=== PATIENT | male | born 1965 | race Caucasian/White ===

== ENCOUNTER 2023-02-23 22:35 | Inpatient (IN) | payer MEDICAID, OTHER ==
--- NOTE | 2023-02-23 23:27 | ED ---
Psych HPI - General Chief Complaint: Psychiatric Symptoms Stated Complaint: Mental Health Time Seen by Provider: 02/23/23 22:46 Source: patient, RN notes reviewed, old records reviewed Mode of arrival: EMS Limitations: no limitations - History of Present Illness Initial Comments: This is a 57-year-old male presents today for evaluation by psychiatry. Patient presents to the emergency department for mental health evaluation MD Complaint: suicidal ideation, feels depressed -: days(s) Associated Psychiatric Symptoms: depression, suicidal ideation History of same: Yes Quality: constant Improves With: none Worsens With: none Context: not taking psychiatric medications, significant life stressor Associated Symptoms: denies other symptoms Treatments Prior to Arrival: placed on mental health hold - Related Data Allergies Allergy/AdvReac Type Severity Reaction Status Date / Time No Known Allergies Allergy Verified 02/23/23 22:50 Review of Systems ROS Statement: Those systems with pertinent positive or pertinent negative responses have been documented in the HPI. ROS Other: All systems not noted in ROS Statement are negative. Past Medical History Past Medical History: Diabetes Mellitus History of Any Multi-Drug Resistant Organisms: None Reported Past Psychological History: Anxiety, Depression Smoking Status: Current every day smoker Past Alcohol Use History: None Reported Past Drug Use History: None Reported General Exam Limitations: no limitations General appearance: alert, in no apparent distress Head exam: Present: atraumatic, normocephalic, normal inspection Eye exam: Present: normal appearance, PERRL, EOMI. Absent: scleral icterus, conjunctival injection, periorbital swelling ENT exam: Present: normal exam, mucous membranes moist Neck exam: Present: normal inspection. Absent: tenderness, meningismus, lymphadenopathy Respiratory exam: Present: normal lung sounds bilaterally. Absent: respiratory distress, wheezes, rales, rhonchi, stridor Cardiovascular Exam: Present: regular rate, normal rhythm, normal heart sounds. Absent: systolic murmur, diastolic murmur, rubs, gallop, clicks GI/Abdominal exam: Present: soft, normal bowel sounds. Absent: distended, tenderness, guarding, rebound, rigid Extremities exam: Present: normal inspection, full ROM, normal capillary refill. Absent: tenderness, pedal edema, joint swelling, calf tenderness Back exam: Present: normal inspection Neurological exam: Present: alert, oriented X3, CN II-XII intact Psychiatric exam: Present: normal affect, normal mood Skin exam: Present: warm, dry, intact, normal color. Absent: rash Course - Reevaluation(s) Reevaluation #1: 02/24/23 06:13 Medical records reviewed Reevaluation #2: 02/24/23 06:13 Medical clear for psychiatric evaluation Disposition Referrals: Andrea English MD [Primary Care Provider] - 1-2 days
[2023-02-24 14:03] LABS: HCT 49.4 % (39.0-53.0); HGB 16.7 gm/dL (13.0-17.5); MCH 30.3 pg (25.0-35.0); MCHC 33.7 g/dL (31.0-37.0); MCV 89.7 fL (80.0-100.0); Mean Platelet Volume 7.8; Platelet Count 325 k/uL (150-450); RBC 5.51 m/uL (4.30-5.90); RDW 13.6 % (11.5-15.5)
[2023-02-24 14:17] LABS: ALT 28 U/L (4-49); AST 22 U/L (17-59); African American GFR (CKD) >90 (>60 ml/min/1.73 sqM); Albumin 4.2 g/dL (3.5-5.0); Alkaline Phosphatase 78 U/L (38-126); Anion Gap 14 mmol/L; Blood Urea Nitrogen 7 mg/dL (9-20); Carbon Dioxide 20 mmol/L (22-30); Chloride 103 mmol/L (98-107); Glucose 231 mg/dL (74-99); Non-African American GFR(CKD) >90 (>60 ml/min/1.73 sqM); Potassium 3.2 mmol/L (3.5-5.1); Sodium 137 mmol/L (137-145); Total Bilirubin 0.9 mg/dL (0.2-1.3); Total Protein 6.9 g/dL (6.3-8.2)
[2023-02-24] MEDS ORDERED: MAG HYDROX/AL HYDROX/SIMETH 30 ML CUP PO PRN (16:56)
[2023-02-24] MEDS ORDERED: ACETAMINOPHEN TAB 325 MG TAB PO PRN (16:56)
[2023-02-24] MEDS ORDERED: MAGNESIUM HYDROXIDE 2,400 MG/30 ML CUP PO PRN (16:56)
[2023-02-24] MEDS ORDERED: LORazepam 2 MG/ML INJ IM PRN (17:02)
[2023-02-24] MEDS ORDERED: LORazepam 1 MG TAB PO PRN (17:03)
[2023-02-24] MEDS ORDERED: HALOPERIDOL LACTATE 5 MG/ML 1 ML VIAL IM PRN (17:04)
[2023-02-24] MEDS ORDERED: haloperidoL 5 MG TAB PO PRN (17:05)
[2023-02-24 17:17] LABS: Glucose,Whole Blood 156 mg/dL (70-110)
[2023-02-24 17:47] LABS: Appearance,Urine Clear (Clear); Bacteria,Urine Rare /hpf; Bilirubin,Urine Negative (Negative); Blood,Urine Negative (Negative); Color,Urine Light Yellow; Glucose,Urine (UA) Trace (Negative); Ketones,Urine Trace (Negative); Leukocyte Esterase,Urine Negative (Negative); Mucus,Urine Rare /hpf; Nitrite,Urine Negative (Negative); Protein,Urine 1+ (Negative); RBC,Urine 1 /hpf (0-5); Specific Gravity,Urine 1.008 (1.001-1.035); Urobilinogen,Urine <2.0 mg/dL (<2.0); WBC,Urine 1 /hpf (0-5)
[2023-02-24 17:58] LABS: Amphetamine Screen,Urine Not Detected (NotDetected); Barbiturate Screen,Urine Not Detected (NotDetected); Benzodiazepines Screen,Urine Detected (NotDetected); Cocaine Screen,Urine Not Detected (NotDetected); Methadone Screen, Urine Not Detected (NotDetected); Opiate Screen,Urine Not Detected (NotDetected); Oxycodone Screen, Urine Not Detected (NotDetected); Phencyclidine Screen,Urine Not Detected (NotDetected); Tricyclic Antidepressant,Urine Not Detected (NotDetected); Urn Cannabinoid Scrn Not Detected (NotDetected)
[2023-02-24 20:06] LABS: Glucose,Whole Blood 212 mg/dL (70-110)
[2023-02-25] MEDS ORDERED: POTASSIUM CHLORIDE ER 20 MEQ TAB.ER PO STA (00:36)
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
[2023-02-25] MEDS: INSULIN ASPART (NovoLOG) 100 UNIT/ML VIAL SQ SCH ×4 (07:43→21:15)
[2023-02-25] MEDS: NICOTINE 21MG/24HR PATCH TRANSDERM SCH (07:44)
[2023-02-25 07:51] LABS: Glucose,Whole Blood 137 mg/dL (70-110)
[2023-02-25] MEDS ORDERED: ALBUTEROL HFA INHALER INHALATION PRN ×2 (08:54→09:03)
[2023-02-25] MEDS ORDERED: clonazePAM 1 MG TAB PO PRN (08:54)
[2023-02-25] MEDS ORDERED: FLUTICASONE 50MCG/SPRAY NASAL 16GM EA NOSTRIL PRN (08:54)
[2023-02-25] MEDS ORDERED: NIFEdipine XL 30 MG TAB.ER.24 PO SCH (09:30)
[2023-02-25] MEDS: NIFEdipine XL 90 MG TAB.ER.24 PO SCH (10:12)
[2023-02-25] MEDS: metFORMIN 500 MG TAB PO SCH ×2 (10:12→21:14)
[2023-02-25] MEDS: DULoxetine HCL 30 MG CAPSULE.DR PO SCH (10:12)
[2023-02-25] MEDS: lisinopriL 20 MG TAB PO SCH (10:12)
[2023-02-25] MEDS: ATORVASTATIN 40 MG TAB PO SCH (10:13)
[2023-02-25] MEDS: METOPROLOL TARTRATE 25 MG TAB PO SCH ×2 (10:13→21:13)
[2023-02-25] MEDS: PREGABALIN 100 MG CAP PO SCH ×2 (10:13→21:14)
[2023-02-25] MEDS: LORATADINE 10 MG TAB PO SCH (10:13)
[2023-02-25] MEDS: INSULIN DETEMIR (LEVEMIR) 100 UNIT/ML SYR SQ SCH (10:14)
[2023-02-25 12:47] LABS: HCT 49.8 % (39.0-53.0); HGB 16.8 gm/dL (13.0-17.5); MCH 30.3 pg (25.0-35.0); MCHC 33.8 g/dL (31.0-37.0); MCV 89.8 fL (80.0-100.0); Mean Platelet Volume 7.9; Platelet Count 362 k/uL (150-450); RBC 5.55 m/uL (4.30-5.90); RDW 13.5 % (11.5-15.5); WBC 13.4 k/uL (3.8-10.6)
[2023-02-25 12:59] LABS: Glucose,Whole Blood 134 mg/dL (70-110)
[2023-02-25 13:08] LABS: African American GFR (CKD) >90 (>60 ml/min/1.73 sqM); Anion Gap 13 mmol/L; Blood Urea Nitrogen 9 mg/dL (9-20); Calcium 9.9 mg/dL (8.4-10.2); Carbon Dioxide 21 mmol/L (22-30); Chloride 104 mmol/L (98-107); Glucose 165 mg/dL (74-99); Non-African American GFR(CKD) >90 (>60 ml/min/1.73 sqM); Potassium 4.2 mmol/L (3.5-5.1); Sodium 138 mmol/L (137-145)
[2023-02-25] MEDS: REPAGLINIDE 1 MG TAB PO SCH ×2 (13:08→17:52)
--- NOTE | 2023-02-25 14:33 | P.HP ---
Psychiatric H&P - . H&P Date: 02/25/23 History & Physical: Allergies Allergy/AdvReac Type Severity Reaction Status Date / Time No Known Allergies Allergy Verified 02/24/23 14:42 Vital Signs Temp 97.6 F 02/25/23 06:45 Pulse 99 02/25/23 10:18 Resp 16 02/25/23 06:45 BP 179/85 02/25/23 10:18 Pulse Ox 97 02/25/23 06:45 FiO2 Intake & Output 02/24/23 02/25/23 02/25/23 18:59 06:59 18:59 Weight 109.27 kg 109.27 kg Laboratory Last Values WBC 13.4 k/uL (3.8-10.6) H 02/25/23 11:50 RBC 5.55 m/uL (4.30-5.90) 02/25/23 11:50 Hgb 16.8 gm/dL (13.0-17.5) 02/25/23 11:50 Hct 49.8 % (39.0-53.0) 02/25/23 11:50 MCV 89.8 fL (80.0-100.0) 02/25/23 11:50 MCH 30.3 pg (25.0-35.0) 02/25/23 11:50 MCHC 33.8 g/dL (31.0-37.0) 02/25/23 11:50 RDW 13.5 % (11.5-15.5) 02/25/23 11:50 Plt Count 362 k/uL (150-450) 02/25/23 11:50 MPV 7.9 02/25/23 11:50 Sodium 138 mmol/L (137-145) 02/25/23 11:50 Potassium 4.2 mmol/L (3.5-5.1) 02/25/23 11:50 Chloride 104 mmol/L (98-107) 02/25/23 11:50 Carbon Dioxide 21 mmol/L (22-30) L 02/25/23 11:50 Anion Gap 13 mmol/L 02/25/23 11:50 BUN 9 mg/dL (9-20) 02/25/23 11:50 Creatinine 0.76 mg/dL (0.66-1.25) 02/25/23 11:50 Est GFR (CKD-EPI)AfAm >90 (>60 ml/min/1.73 sqM) 02/25/23 11:50 Est GFR (CKD-EPI)NonAf >90 (>60 ml/min/1.73 sqM) 02/25/23 11:50 Glucose 165 mg/dL (74-99) H 02/25/23 11:50 POC Glucose (mg/dL) 134 mg/dL (70-110) H 02/25/23 12:57 POC Glu Driver/Refuse Collector ID Makeda Grullon 02/25/23 12:57 Calcium 9.9 mg/dL (8.4-10.2) 02/25/23 11:50 Total Bilirubin 0.9 mg/dL (0.2-1.3) 02/24/23 13:49 AST 22 U/L (17-59) 02/24/23 13:49 ALT 28 U/L (4-49) 02/24/23 13:49 Alkaline Phosphatase 78 U/L (38-126) 02/24/23 13:49 Total Protein 6.9 g/dL (6.3-8.2) 02/24/23 13:49 Albumin 4.2 g/dL (3.5-5.0) 02/24/23 13:49 Urine Color Light Yellow 02/24/23 13:49 Urine Appearance Clear (Clear) 02/24/23 13:49 Urine pH 7.0 (5.0-8.0) 02/24/23 13:49 Ur Specific Hundred 1.008 (1.001-1.035) 02/24/23 13:49 Urine Protein 1+ (Negative) H 02/24/23 13:49 Urine Glucose (UA) Trace (Negative) H 02/24/23 13:49 Urine Ketones Trace (Negative) H 02/24/23 13:49 Urine Blood Negative (Negative) 02/24/23 13:49 Urine Nitrite Negative (Negative) 02/24/23 13:49 Urine Bilirubin Negative (Negative) 02/24/23 13:49 Urine Urobilinogen <2.0 mg/dL (<2.0) 02/24/23 13:49 Ur Leukocyte Esterase Negative (Negative) 02/24/23 13:49 Urine RBC 1 /hpf (0-5) 02/24/23 13:49 Urine WBC 1 /hpf (0-5) 02/24/23 13:49 Urine Bacteria Rare /hpf (None) H 02/24/23 13:49 Urine Mucus Rare /hpf (None) H 02/24/23 13:49 Urine Opiates Screen Not Detected (NotDetected) 02/24/23 13:49 Ur Oxycodone Screen Not Detected (NotDetected) 02/24/23 13:49 Urine Methadone Screen Not Detected (NotDetected) 02/24/23 13:49 Ur Propoxyphene Screen Not Detected (NotDetected) 02/24/23 13:49 Ur Barbiturates Screen Not Detected (NotDetected) 02/24/23 13:49 U Tricyclic Antidepress Not Detected (NotDetected) 02/24/23 13:49 Ur Phencyclidine Scrn Not Detected (NotDetected) 02/24/23 13:49 Ur Amphetamines Screen Not Detected (NotDetected) 02/24/23 13:49 U Methamphetamines Scrn Not Detected (NotDetected) 02/24/23 13:49 U Benzodiazepines Scrn Detected (NotDetected) H 02/24/23 13:49 Urine Cocaine Screen Not Detected (NotDetected) 02/24/23 13:49 U Marijuana (THC) Screen Not Detected (NotDetected) 02/24/23 13:49 Influenza Type A (PCR) Not Detected (Not Detectd) 02/24/23 13:49 Influenza Type B (PCR) Not Detected (Not Detectd) 02/24/23 13:49 RSV (PCR) Not Detected (Not Detectd) 02/24/23 13:49 SARS-CoV-2 (PCR) Not Detected (Not Detectd) 02/24/23 13:49 02/25/23 14:19 IDENTIFYING DATA: Patient is a 57 yo male, currently lives alone in an apartment, collects [employer] HPI: Patient presented to the hospital on saturday and apparently was endorsing depression and suicidal ideations. Patient's urine drug positive for benzodiazepines. Patient was admitted voluntarily to the mental health unit. Patient was seen today and agreeable to seek a life insurance underwriter. Patient was fairly concrete, vague at times. He had very superficial understanding of why he is in the hospital. He claims that he was having trouble reaching his sister over the phone. He claims that he found out that her phone battery was low and she was not receiving the calls. He states that he "overreacted" and states that he went to his neighbor and apparently endorsed feeling depressed and having suicidal thoughts to overdose on pills. Patient claims that she believed that something bad happened between him and his sister therefore he overreacted. He claims that he does have difficulties with depression and also anxiety at times. He did endorse a history of PTSD. States that he gets about 5-6 hours of sleep, states that his appetite is fair at this time. Patient denies any current suicidal or homicidal ideations intent or plan. At this time patient denies any auditory or visual hallucinations. Patient denies any flight of ideas racing thoughts and increased in goal directed behavior. Patient admits to using now recreational drugs or cigarettes PAST PSYCHIATRIC HISTORY: Patient states that he has a history of depression, PTSD. Issues currently on Cymbalta, he just started taking medication several days ago. Patient also takes Klonopin 1 mg twice a day when necessary. Patient denies any previous psychiatric hospitalizations. Patient states that he follows up at the [facility] in [facility], he sees a nurse practitioner there. Patient denies any history of suicide attempts in the past. Past Medical History: Diabetes Mellitus History of Any Multi-Drug Resistant Organisms: None Reported Past Psychological History: Anxiety, Depression Smoking Status: Current every day smoker Past Alcohol Use History: None Reported Past Drug Use History: None Reported ALLERGIES: as per EMR CHEMICAL DEPENDENCY HISTORY: as per HPI FAMILY PSYCHIATRIC/SUBSTANCE USE HISTORY: He claims that his grandmother had anxiety and panic attacks SOCIAL HISTORY: Patient was born and raised in [facility] and states that he also now lives in [place]. 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 He lives alone in an apartment. She denies any legal history. MENTAL STATUS EXAM: General Appearance: Patient appears to be tall, balding, wearing glasses, poor dentition, stated age is alert, directable, and attempts to cooperate. Patient appears to have poor hygiene and grooming. Behavior: Patient is seated without any agitated behavior. Attempts to cooperate Speech: Patient's speech is fluent and nonpressured. [place] Mood/Affect: Patient reports their mood is depressed and anxious, affect is congruent and constricted. Suicidality/Homicidality: Patient denies having any homicidal ideation intent or plan. Denies any suicidal ideations intent or plan Perceptions: Patient denies any visual hallucinations and denies any auditory hallucinations Though content/process: There is no evidence of any delusional thought content and thought process is linear and goal-directed. [place] and vague. Memory and concentration: AOX3, grossly intact for the purposes of this session. Can spell "WORLD" backwards Judgment and insight: Chronically limited STRENGTHS/WEAKNESSES: strength is that patient is resilient. Weakness is that patient has poor judgment and is impulsive INTELLECT: Below average IMPRESSIONS: Major depressive disorder without psychotic features PTSD Intellectual disability PLAN: -Patient is admitted under voluntary status to MHU for stabilization of psychiatric symptoms and safety. Patient has signed adult voluntary form and medication consent and is placed in patient's chart. -Medications : Continue with Cymbalta 30 mg daily for mood/anxiety, will likely increase the dose as tolerated. Melatonin 5 mg daily at bedtime scheduled for sleep. Klonopin 1 mg twice a day when necessary for anxiety, which is his home dose. -Haldol PRN for agitation/aggression -Patient was informed of the risks, benefits and side effects of the medication and patient verbally consented to taking the medications. Patient signed med consent form and was placed in chart. -Internal Medicine consult to perform medical evaluation and physical. -NRT - not needed as patient does not smoke -SW on board for discharge planning. Encourage patient to participate in groups to work on coping skills. 02/25/23 14:28
[2023-02-25 17:46] LABS: Glucose,Whole Blood 92 mg/dL (70-110)
[2023-02-25 18:01] LABS: Chol/HDL Ratio 5.11 Ratio; LDL Cholesterol,Calculated 88.6 mg/dL (0.0-131.0)
[2023-02-25 19:54] LABS: Glucose,Whole Blood 140 mg/dL (70-110)
[2023-02-25] MEDS: MELATONIN 5 MG TABLET PO SCH (21:13)
[2023-02-25] MEDS: FLUTICASONE 110 MCG INHALER (MHU) INHALATION SCH (21:14)
[2023-02-26 08:04] LABS: Glucose,Whole Blood 126 mg/dL (70-110)
[2023-02-26] MEDS: INSULIN DETEMIR (LEVEMIR) 100 UNIT/ML SYR SQ SCH (08:04)
[2023-02-26] MEDS: INSULIN ASPART (NovoLOG) 100 UNIT/ML VIAL SQ SCH ×4 (08:04→20:53)
[2023-02-26] MEDS: REPAGLINIDE 1 MG TAB PO SCH ×3 (08:04→18:06)
[2023-02-26] MEDS: NICOTINE 21MG/24HR PATCH TRANSDERM SCH (08:04)
[2023-02-26] MEDS: FLUTICASONE 110 MCG INHALER (MHU) INHALATION SCH ×2 (08:05→20:54)
[2023-02-26] MEDS: lisinopriL 20 MG TAB PO SCH (08:40)
[2023-02-26] MEDS: metFORMIN 500 MG TAB PO SCH ×2 (08:40→20:54)
[2023-02-26] MEDS: METOPROLOL TARTRATE 25 MG TAB PO SCH ×2 (08:40→20:54)
[2023-02-26] MEDS: ATORVASTATIN 40 MG TAB PO SCH (08:40)
[2023-02-26] MEDS: DULoxetine HCL 30 MG CAPSULE.DR PO SCH ×2 (08:40→20:54)
[2023-02-26] MEDS: LORATADINE 10 MG TAB PO SCH (08:40)
[2023-02-26] MEDS: PREGABALIN 100 MG CAP PO SCH ×2 (08:40→20:54)
[2023-02-26] MEDS: NIFEdipine XL 90 MG TAB.ER.24 PO SCH (08:41)
--- NOTE | 2023-02-26 11:00 | P.PN ---
Progress Note - Text Progress Note Date: 02/26/23 Interval History: Patient was seen today wandeirng the hallways and also participating in groups. He was agreeable to speak to group underwriter in the office today. Patient claims that he is doing a bit better today. He states that his mood and anxiety. Mildly improving. He states that he would like to have his Cymbalta increased as he felt that it was plateauing earlier. He states that he has been trying to go to groups and participate as best as he can. He was fairly concrete today. Claims that his appetite is fair. States that he slept better last night. At this time is denying any suicidal or homicidal ideations intent or plan. Mental status examination: General Appearance: Patient appears to be tall, balding, wearing glasses, poor dentition, stated age is alert, directable, and attempts to cooperate. Patient appears to have improving mildly hygiene and grooming. Behavior: Patient is seated without any agitated behavior. Attempts to cooperate Speech: Patient's speech is fluent and nonpressured. [place] Mood/Affect: Patient reports their mood is improving mildly, affect is congruent Suicidality/Homicidality: Patient denies having any homicidal ideation intent or plan. Denies any suicidal ideations intent or plan Perceptions: Patient denies any visual hallucinations and denies any auditory hallucinations Though content/process: There is no evidence of any delusional thought content and thought process is linear and goal-directed. [place], improving mildly Memory and concentration: AOX3, grossly intact for the purposes of this session Judgment and insight: Chronically limited, improving mildly IMPRESSIONS: Major depressive disorder without psychotic features PTSD Intellectual disability PLAN: -Patient is admitted under voluntary status to MHU for stabilization of psychiatric symptoms and safety. Patient has signed adult voluntary form and medication consent and is placed in patient's chart. -Medications : increase Cymbalta 30 mg BID for mood/anxiety, continue Melatonin 5 mg daily at bedtime scheduled for sleep. Klonopin 1 mg twice a day when nec essary for anxiety -Haldol PRN for agitation/aggression -NRT - not needed as patient does not smoke -SW on board for discharge planning. Encourage patient to participate in groups to work on coping skills. likely discharge back home tomorrow.
[2023-02-26 12:37] LABS: Glucose,Whole Blood 115 mg/dL (70-110)
[2023-02-26] MEDS: NICOTINE GUM (POLACRILEX) 2 MG GUM BUCCAL PRN ×2 (13:28→22:50)
[2023-02-26 17:39] LABS: Glucose,Whole Blood 170 mg/dL (70-110)
--- NOTE | 2023-02-26 19:40 | P.PN ---
Progress Note - Text Progress Note Date: 02/26/23 Hospital course: February 26: Up and about in the hallway. Eating well. Slept well last night. Overall feeling better. Had a bowel movement. Active Medications Acetaminophen (Acetaminophen Tab 325 Mg Tab) 650 mg PO Q4HR PRN PRN Reason: Mild Pain (Scale 1 to 3) Last Admin: 02/25/23 07:43 Dose: 650 mg Al Hydroxide/Mg Hydroxide (Mag Hydrox/Al Hydrox/Simeth 30 Ml Cup) 30 ml PO Q4HR PRN PRN Reason: GI Upset Albuterol Sulfate (Albuterol Hfa Inhaler) 2 puff INHALATION RT-Q6H PRN PRN Reason: Shortness Of Breath Atorvastatin Calcium (Atorvastatin 40 Mg Tab) 40 mg PO DAILY [facility] Last Admin: 02/26/23 08:40 Dose: 40 mg Clonazepam (Clonazepam 1 Mg Tab) 1 mg PO BID PRN PRN Reason: Anxiety Duloxetine HCl (Duloxetine Hcl 30 Mg Capsule.Dr) 30 mg PO BID [facility] Fluticasone Propionate (Fluticasone 50mcg/Otto Nasal 16gm) 1 spray EA NOSTRIL DAILY PRN PRN Reason: Allergy Symptoms Fluticasone Propionate (Fluticasone 110 Mcg Inhaler (Mhu)) 1 puff INHALATION RT-BID [facility] Last Admin: 02/26/23 08:05 Dose: 1 puff Haloperidol (Haloperidol 5 Mg Tab) 5 mg PO QID PRN PRN Reason: Agitation or Acute Anxiety Haloperidol Lactate (Haloperidol Lactate 5 Mg/Ml 1 Ml Vial) 5 mg IM Q6HR PRN PRN Reason: Agitation or Acute Psychosis Insulin Aspart (Insulin Aspart (Novolog) 100 Unit/Ml Vial) 0 unit SQ [facility]; Protocol Last Admin: 02/26/23 18:06 Dose: 3 unit Insulin Detemir (Insulin Detemir (Levemir) 100 Unit/Ml Syr) 50 unit SQ DAILY@0700 [facility] Last Admin: 02/26/23 08:04 Dose: 50 unit Lisinopril (Lisinopril 20 Mg Tab) 40 mg PO DAILY [facility] Last Admin: 02/26/23 08:40 Dose: 40 mg Loratadine (Loratadine 10 Mg Tab) 10 mg PO DAILY [facility] Last Admin: 02/26/23 08:40 Dose: 10 mg Lorazepam (Lorazepam 2 Mg/Ml Inj) 1 mg IM Q6HR PRN PRN Reason: Agitation or Acute Anxiety Magnesium Hydroxide (Magnesium Hydroxide 2,400 Mg/30 Ml Cup) 2,400 mg PO DAILY PRN PRN Reason: Constipation Melatonin (Melatonin 5 Mg Tablet) 5 mg PO HS [facility] Last Admin: 02/25/23 21:13 Dose: 5 mg Metformin HCl (Metformin 500 Mg Tab) 500 mg PO BID [facility] Last Admin: 02/26/23 08:40 Dose: 500 mg Metoprolol Tartrate (Metoprolol Tartrate 25 Mg Tab) 75 mg PO BID [facility] Last Admin: 02/26/23 08:40 Dose: 75 mg Nicotine (Nicotine 21mg/24hr Patch) 1 patch TRANSDERM DAILY [facility] Last Admin: 02/26/23 08:04 Dose: 1 patch Nicotine Polacrilex (Nicotine Gum (Polacrilex) 2 Mg Gum) 2 mg BUCCAL Q4HR PRN PRN Reason: Nicotine Cravings Last Admin: 02/26/23 13:28 Dose: 2 mg Nifedipine (Nifedipine Xl 90 Mg Tab.Er.24) 90 mg PO DAILY [facility] Last Admin: 02/26/23 08:41 Dose: 90 mg Pregabalin (Pregabalin 100 Mg Cap) 200 mg PO BID [facility] Last Admin: 02/26/23 08:40 Dose: 200 mg Repaglinide (Repaglinide 1 Mg Tab) 2 mg PO AC-TID [facility] Last Admin: 02/26/23 18:06 Dose: 2 mg On examination: VITAL SIGNS: [97.3, 62, 12, 123 with 70, 97% room air] GENERAL APPEARANCE: BMI 30.9, sitting on a chair awake comfortable HEENT: Normal external appearance of nose and ear. Oral cavity -some missing teeth EYES: Pupils equal. Conjunctiva normal. NECK: JVD not raised. Mass not palpable. RESPIRATORY: Respiratory effort normal. Lungs clear to auscultation. CARDIOVASCULAR: First and second sounds normal. No edema. ABDOMEN: Soft. Liver and spleen not palpable. No tenderness. No mass palpable. PSYCHIATRY: Able to answer simple questions. Appears comfortable Assessment and plan: -Major depressive disorder without psychotic features. PTSD. Medications as per psychiatry -Chronic intellectual disability -Diabetes mellitus type 2, chronically on insulin Prandin. Lantus 50 units. Metformin. Follow Accu-Cheks with sliding scale. -Essential hypertension Procardia XL 90 mg a day. Lopressor 75 mg twice a day. Lisinopril 40 mg a day -Chronic nicotine dependence, cigarette smoker Nicotine patch -Peripheral neuropathy Lyrica -COPD in a current smoker Flovent 110 g twice a day. Ventolin when necessary Care was discussed with the patient. Continue current treatment plan..
[2023-02-26 20:14] LABS: Glucose,Whole Blood 172 mg/dL (70-110)
[2023-02-26] MEDS: MELATONIN 5 MG TABLET PO SCH (20:54)
[2023-02-27 07:19] VITALS: TEMP 97.5
[2023-02-27] MEDS: INSULIN ASPART (NovoLOG) 100 UNIT/ML VIAL SQ SCH ×2 (08:04→13:13)
[2023-02-27] MEDS: INSULIN DETEMIR (LEVEMIR) 100 UNIT/ML SYR SQ SCH (08:04)
[2023-02-27] MEDS: NICOTINE 21MG/24HR PATCH TRANSDERM SCH (08:05)
[2023-02-27] MEDS: REPAGLINIDE 1 MG TAB PO SCH ×2 (08:05→13:20)
[2023-02-27] MEDS: metFORMIN 500 MG TAB PO SCH (08:06)
[2023-02-27] MEDS: ATORVASTATIN 40 MG TAB PO SCH (08:06)
[2023-02-27] MEDS: NIFEdipine XL 90 MG TAB.ER.24 PO SCH (08:06)
[2023-02-27] MEDS: lisinopriL 20 MG TAB PO SCH (08:07)
[2023-02-27] MEDS: FLUTICASONE 110 MCG INHALER (MHU) INHALATION SCH (08:07)
[2023-02-27] MEDS: METOPROLOL TARTRATE 25 MG TAB PO SCH (08:07)
[2023-02-27] MEDS: LORATADINE 10 MG TAB PO SCH (08:07)
[2023-02-27] MEDS: DULoxetine HCL 30 MG CAPSULE.DR PO SCH (08:07)
[2023-02-27] MEDS: PREGABALIN 100 MG CAP PO SCH (08:08)
[2023-02-27 08:09] LABS: Glucose,Whole Blood 109 mg/dL (70-110)
[2023-02-27 08:24] VITALS: BP 140/81; PULSE 77; RESP 18
[2023-02-27] MEDS: NICOTINE GUM (POLACRILEX) 2 MG GUM BUCCAL PRN (09:28)
--- NOTE | 2023-02-27 11:34 | P.PN ---
Subjective Progress Note Date: 02/27/23 Principal diagnosis: IMPRESSIONS: Adjustment disorder with mixed emotional features Mood disorder mild PTSD by history Intellectual disability Patient Name: Will Scherer Date of : 1965 Patient Status: Inpatient Attending Provider: Gordy Carl Date: 02/27/23 Interval History: At this time is denying any suicidal or homicidal ideations intent or plan. Patient states that the circumstances that led him to his hospitalization was when he was not able to reach his sister on the phone He states that he did not know that these sisters for had due to not charging He states that he was very concerned and express wanting to overdose to his neighbor who then brought him to the hospital He denies any previous suicidal ideations or plans He denies any current such thoughts and states that he was severely and that he jumped to the guns He denies any intention of harming himself others and states that he is ready to go home He denies any intention of harming himself or others Patient reports that he does go to outpatient counseling for support Mental status examination: General Appearance: Patient appears to be tall, balding, wearing glasses, poor dentition, stated age is alert, directable, and attempts to cooperate. Patient appears to have improving mildly hygiene and grooming. Behavior: Patient is seated without any agitated behavior. Attempts to cooperate Speech: Patient's speech is fluent and nonpressured. [place] Mood/Affect: Patient reports their mood is fair, affect is congruent Suicidality/Homicidality: Patient denies having any homicidal ideation intent or plan. Denies any suicidal ideations intent or plan Perceptions: Patient denies any visual hallucinations and denies any auditory hallucinations Though content/process: There is no evidence of any delusional thought content and thought process is linear and goal-directed. [place], improving mildly Memory and concentration: AOX3, grossly intact for the purposes of this session Judgment and insight: Chronically limited, on Coumadin simple IMPRESSIONS: Adjustment disorder with mixed emotional features Mood disorder mild resolved PTSD by history Intellectual disability PLAN: -Patient is admitted under voluntary status to [facility] for stabilization of psychiatric symptoms and safety. Patient has signed adult voluntary form and medication consent and is placed in patient's chart. -Medications : Continue Cymbalta 30 mg BID for mood/anxiety, continue Melatonin 5 mg daily at bedtime scheduled for sleep. Klonopin 1 mg twice a day when necessary for anxiety -Haldol PRN for agitation/aggression -NRT - not needed as patient does not smoke -SW on board for discharge planning. Encourage patient to participate in groups to work on coping skills. likely discharge back home tomorrow. The patient appears to be stable and further treatment could be continued as an outpatient We will plan for discharge today after the oncology social worker contacts patient's sister and makes appropriate discharge plans for follow-up and care Objective - Vital Signs Vital signs: Vital Signs Temp 97.5 F L 02/27/23 06:49 Pulse 77 02/27/23 08:05 Resp 18 02/27/23 08:05 BP 140/81 02/27/23 08:05 Pulse Ox 95 02/27/23 06:49 FiO2 - Labs CBC & Chem 7: 02/25/23 11:50 02/25/23 11:50 Labs: Abnormal Lab Results - Last 24 Hours (Table) 02/26/23 02/26/23 02/26/23 Range/Units 12:36 17:38 20:11 POC Glucose (mg/dL) 115 H 170 H 172 H (70-110) mg/dL
--- NOTE | 2023-02-27 11:35 | P.DS ---
Providers Date of admission: 02/24/23 16:52 Attending physician: Gordy Carl MD Consults: 02/24/23 16:56 Consult Physician Routine Consulting Provider: Matty Wilson Consult Reason/Comments: medical management Do you want consulting provider notified?: Yes Primary care physician: Andrea English [place] [facility] Course: Patient Name: Will Scherer Date of : 1965 Patient Status: Inpatient Attending Provider: Gordy Carl Date: 02/27/23 Interval History: At this time is denying any suicidal or homicidal ideations intent or plan. Patient states that the circumstances that led him to his hospitalization was when he was not able to reach his sister on the phone He states that he did not know that these sisters for had due to not charging He states that he was very concerned and express wanting to overdose to his neighbor who then brought him to the hospital He denies any previous suicidal ideations or plans He denies any current such thoughts and states that he was severely and that he jumped to the guns He denies any intention of harming himself others and states that he is ready to go home He denies any intention of harming himself or others Patient reports that he does go to outpatient counseling for support Mental status examination: General Appearance: Patient appears to be tall, balding, wearing glasses, poor dentition, stated age is alert, directable, and attempts to cooperate. Patient appears to have improving mildly hygiene and grooming. Behavior: Patient is seated without any agitated behavior. Attempts to cooperate Speech: Patient's speech is fluent and nonpressured. [place] Mood/Affect: Patient reports their mood is fair, affect is congruent Suicidality/Homicidality: Patient denies having any homicidal ideation intent or plan. Denies any suicidal ideations intent or plan Perceptions: Patient denies any visual hallucinations and denies any auditory hallucinations Though content/process: There is no evidence of any delusional thought content and thought process is linear and goal-directed. [place], improving mildly Memory and concentration: AOX3, grossly intact for the purposes of this session Judgment and insight: Chronically limited, on Coumadin simple IMPRESSIONS: Adjustment disorder with mixed emotional features Mood disorder mild resolved PTSD by history Intellectual disability PLAN: -Patient is admitted under voluntary status to [facility] for stabilization of psychiatric symptoms and safety. Patient has signed adult voluntary form and medication consent and is placed in patient's chart. -Medications : Continue Cymbalta 30 mg BID for mood/anxiety, continue Melatonin 5 mg daily at bedtime scheduled for sleep. Klonopin 1 mg twice a day when necessary for anxiety -Haldol PRN for agitation/aggression -NRT - not needed as patient does not smoke -SW on board for discharge planning. Encourage patient to participate in groups to work on coping skills. likely discharge back home tomorrow. The patient appears to be stable and further treatment could be continued as an outpatient We will plan for discharge today after the family welfare social work professor contacts patient's sister and makes appropriate discharge plans for follow-up and care Patient Condition at Discharge: Good Plan - Discharge Summary Discharge Rx Participant: Yes New Discharge Prescriptions: No Action Fluticasone Propionate 110 Mcg [Flovent 110 Mcg Inhaler] 1 puff INHALATION RT-BID NIFEdipine XL [Procardia XL] 60 mg PO DAILY Enalapril [Vasotec] 20 mg PO DAILY Metoprolol Tartrate [Lopressor] 75 mg PO BID Fluticasone Nasal [place] [Flonase Nasal [place]] 1 spray EA NOSTRIL DAILY PRN PRN Reason: Allergy Symptoms Cetirizine HCl [Zyrtec] 10 mg PO DAILY Albuterol Inhaler [Ventolin Hfa Inhaler] 2 puff INHALATION RT-Q6H PRN PRN Reason: Shortness Of Breath clonazePAM [KlonoPIN] 1 mg PO BID PRN PRN Reason: Anxiety Triamcinolone 0.1% Cream [Kenalog 0.1% Cream] 1 applicatio TOPICAL BID PRN PRN Reason: Rash Insulin Glargine,Hum.rec.anlog [Lantus Solostar Pen] 50 units SQ DAILY metFORMIN HCL 500 mg PO BID Repaglinide [Prandin] 2 mg PO AC-TID NIFEdipine XL [Procardia Xl] 30 mg PO DAILY Pregabalin [Lyrica] 200 mg PO BID Ibuprofen [Motrin] 600 mg PO Q8HR PRN PRN Reason: Pain Or Fever > 100.5 DULoxetine HCL [Cymbalta] See Taper PO DIRECTED Atorvastatin [Lipitor] 40 mg PO DAILY Discharge Medication List Albuterol Inhaler [Ventolin Hfa Inhaler] 2 puff INHALATION RT-Q6H PRN 02/24/23 [History] Atorvastatin [Lipitor] 40 mg PO DAILY 02/24/23 [History] Cetirizine HCl [Zyrtec] 10 mg PO DAILY 02/24/23 [History] DULoxetine HCL [Cymbalta] See Taper PO DIRECTED 02/24/23 [History] Enalapril [Vasotec] 20 mg PO DAILY 02/24/23 [History] Fluticasone Nasal [place] [Flonase Nasal [place]] 1 spray EA NOSTRIL DAILY PRN 02/24/23 [History] Fluticasone Propionate 110 Mcg [Flovent 110 Mcg Inhaler] 1 puff INHALATION RT- BID 02/24/23 [History] Ibuprofen [Motrin] 600 mg PO Q8HR PRN 02/24/23 [History] Insulin Glargine,Hum.rec.anlog [Lantus Solostar Pen] 50 units SQ DAILY 02/24/23 [History] Metoprolol Tartrate [Lopressor] 75 mg PO BID 02/24/23 [History] NIFEdipine XL [Procardia XL] 60 mg PO DAILY 02/24/23 [History] NIFEdipine XL [Procardia Xl] 30 mg PO DAILY 02/24/23 [History] Pregabalin [Lyrica] 200 mg PO BID 02/24/23 [History] Repaglinide [Prandin] 2 mg PO AC-TID 02/24/23 [History] Triamcinolone 0.1% Cream [Kenalog 0.1% Cream] 1 applicatio TOPICAL BID PRN 02/24/23 [History] clonazePAM [KlonoPIN] 1 mg PO BID PRN 02/24/23 [History] metFORMIN HCL 500 mg PO BID 02/24/23 [History] Follow up Appointment(s)/Referral(s): [facility], [place] [Other] - 03/06/23 1:00 pm ( - Appointment with Belle (Clinician) in [place] on Saturday03-06-23 @ 1:00pm - Appointment with Vicente (prescriber) in [place] on Saturday03-08-23 @ 10:15am. He will see Amanda (manufacturing storeperson) on 03-08-23 @ 11:00am, after his appt with Vicente. ) Andrea English MD [Primary Care Provider] - 1-2 days Activity/Diet/Wound Care/Special Instructions: Avoid the use of street drugs and alcohol. Take all medications as prescribed. When you are in need of refills on your medications, please contact your medical provider and/or outpatient psychiatrist/provider to have this done. Please go to your scheduled outpatient appointment for aftercare treatment. If symptoms return or become worse, call the crisis line at and/or go to the nearest emergency room for evaluation. National Suicide Hotline 983.
[2023-02-27 13:11] LABS: Glucose,Whole Blood 101 mg/dL (70-110)
== END 2023-02-27 14:50 | disposition home or self-care (01) | DRG 755 ==
LOC: EC 22:35 → 3MHU 02-24 16:52
PROVIDERS: ADMIT Psychiatry & Neurology Psychiatry; ATTEND Psychiatry & Neurology Psychiatry
DX: F43.23 Adjustment disorder with mixed anxiety and depressed mood (principal); F43.10 Post-traumatic stress disorder, unspecified; F32.9 Major depressive disorder, single episode, unspecified; F79 Unspecified intellectual disabilities; I10 Essential (primary) hypertension; F23 Brief psychotic disorder; R45.1 Restlessness and agitation; D72.829 Elevated white blood cell count, unspecified; E11.42 Type 2 diabetes mellitus with diabetic polyneuropathy; E11.65 Type 2 diabetes mellitus with hyperglycemia; E87.6 Hypokalemia; F17.210 Nicotine dependence, cigarettes, uncomplicated; J44.9 Chronic obstructive pulmonary disease, unspecified; K59.00 Constipation, unspecified; R45.851 Suicidal ideations; Z79.4 Long term (current) use of insulin; Z79.84 Long term (current) use of oral hypoglycemic drugs; Z79.899 Other long term (current) drug therapy; Z28.21 Immunization not carried out because of patient refusal
CPT/HCPCS: 36415; 80048; 80053; 80061; 80306; 81001; 82075; 83036; 84443; 85027; 87636